=== PATIENT | male | born 1990 | race Caucasian/White ===

== ENCOUNTER → 2019-01-31 | Outpatient (CLI) | payer BC ==
--- NOTE | 2019-01-31 16:38 | Diagnostic Imaging Report ---
INDICATION: Pain. COMPARISON: None. FINDINGS: Three views of the right knee joint demonstrate no acute fracture or dislocation. No focal osseous lesions are seen. No significant joint effusion is seen. The surrounding soft tissue structures are unremarkable. There are no radiopaque foreign bodies. IMPRESSION: 1. No acute fractures or dislocations of the right knee joint. Dictated by: Dictated on workstation # [id number]
== END ==
LOC: RAD 16:18
PROVIDERS: ATTEND Pediatrics
DX: M25.561 Pain in right knee (principal)
CPT/HCPCS: 73562